=== PATIENT | male | born 1945 | race Caucasian/White ===

== ENCOUNTER 2024-10-29 11:16 | Observation (INO) | payer MEDICARE ==
[~2024-10-29] VITALS: Ht 180.3 cm; Wt 76.2 kg
[2024-10-29 12:15] LABS: BASOPHILS ABSOLUTE AUTO 0.05 K/mm3 (0.00-0.23); BASOPHILS PERCENT AUTO 1 % (0-2); EOSINOPHILS ABSOLUTE AUTO 0.06 K/mm3 (0.00-0.68); EOSINOPHILS PERCENT AUTO 1 % (0-6); Hematocrit 45.3 % (37.0-53.0); Hemoglobin 15.7 g/dL (13.5-17.5); IMMATURE GRAN ABSOLUTE AUTO 0.01 K/mm3 (0.00-0.10); IMMATURE GRAN PERCENT AUTO 0 % (0-1); LYMPHOCYTES ABSOLUTE AUTO 1.19 K/mm3 (0.84-5.20); LYMPHOCYTES PERCENT AUTO 22 % (21-46); MONOCYTES ABSOLUTE AUTO 0.35 K/mm3 (0.16-1.47); MONOCYTES PERCENT AUTO 7 % (4-13); Mean Corpuscular HGB 32.1 pg (26.0-34.0); Mean Corpuscular HGB Conc 34.7 g/dL (31.5-36.5); Mean Corpuscular Volume 93 fL (80-100); Mean Platelet Volume 9.5 fL (9.1-12.4); NEUTROPHILS ABSOLUTE AUTO 3.66 K/mm3 (1.96-9.15); NEUTROPHILS PERCENT AUTO 69 % (41-73); Platelet Count 245 K/mm3 (150-400); RDW Coefficient Variation 12.7 % (11.7-14.2); RDW Standard Deviation 43.1 fL (35.1-46.3); Red Blood Cell Count 4.89 M/mm3 (4.30-5.90); White Blood Cell Count 5.32 K/mm3 (4.00-11.30)
[2024-10-29 12:34] LABS: Albumin, Blood 4.1 g/dL (3.4-5.0); Albumin/Globulin Ratio 1.2 (0.8-1.8); Bilirubin, Total 0.9 mg/dL (0.1-1.0); Bun/Creatinine Ratio 17.2 (12.0-20.0); Calcium, Blood 10.3 mg/dL (8.5-10.1); Creatinine, Blood 0.76 mg/dL (0.60-1.20); Globulin, Blood 3.5 g/dL (2.2-4.0); Potassium, Blood 4.5 mmol/L (3.5-5.5); Total Protein, Blood 7.6 g/dL (6.4-8.2)
[2024-10-29] MEDS ORDERED: FLU VACC TS2024-25(6MOS UP)/PF 45 MCG/0.5 ML SYRINGE IM SCH (19:25)
[2024-10-29] MEDS ORDERED: Ondansetron HCl 2 MG / ML 2ML Vial IV PRN (19:30)
[2024-10-29] MEDS ORDERED: Nitroglycerin 0.4 MG SUBL SL PRN (19:30)
[2024-10-29] MEDS ORDERED: Neurontin 300300 MG PO (21:40)
[2024-10-29] MEDS ORDERED: Percocet 10-321 EACH PO (21:40)
[2024-10-29] MEDS ORDERED: TRAZ50 PO (21:41)
[2024-10-29] MEDS ORDERED: Lovastatin20 MG PO (21:42)
[2024-10-29] MEDS ORDERED: Robaxin750 MG PO (21:42)
[2024-10-29] MEDS ORDERED: Valerian Root500 MG (21:43)
[2024-10-29] MEDS ORDERED: SENN187 (21:43)
[2024-10-29] MEDS ORDERED: ESOM20 PO (21:43)
[2024-10-29] MEDS ORDERED: DULO60 PO (21:44)
[2024-10-29] MEDS ORDERED: MELATONIN5 M1 PO (21:44)
[2024-10-29] MEDS ORDERED: OxyCODONE 10/Acetamin 325 TABLET PO ONE (23:40)
[2024-10-29] MEDS ORDERED: Methocarbamol 500 MG Tab PO ONE (23:40)
[2024-10-29] MEDS ORDERED: TraZODone HCl 50 MG Tab PO ONE (23:40)
[2024-10-29] MEDS ORDERED: Melatonin 5 MG Tablet PO ONE (23:50)
[2024-10-30] MEDS ORDERED: Lactated Ringer's 1,000 ML IV SCH
[2024-10-30] MEDS ORDERED: Lactated Ringer's 1,000 ML IV ONE (01:04)
[2024-10-30] MEDS ORDERED: OxyCODONE 10/Acetamin 325 TABLET PO ONE (04:20)
[2024-10-30 05:14] LABS: BASOPHILS ABSOLUTE AUTO 0.03 K/mm3 (0.00-0.23); BASOPHILS PERCENT AUTO 1 % (0-2); EOSINOPHILS PERCENT AUTO 2 % (0-6); Hematocrit 38.8 % (37.0-53.0); Hemoglobin 13.3 g/dL (13.5-17.5); IMMATURE GRAN ABSOLUTE AUTO 0.01 K/mm3 (0.00-0.10); IMMATURE GRAN PERCENT AUTO 0 % (0-1); LYMPHOCYTES ABSOLUTE AUTO 1.77 K/mm3 (0.84-5.20); LYMPHOCYTES PERCENT AUTO 31 % (21-46); MONOCYTES ABSOLUTE AUTO 0.48 K/mm3 (0.16-1.47); MONOCYTES PERCENT AUTO 8 % (4-13); Mean Corpuscular HGB 32.2 pg (26.0-34.0); Mean Corpuscular HGB Conc 34.3 g/dL (31.5-36.5); Mean Corpuscular Volume 94 fL (80-100); Mean Platelet Volume 9.3 fL (9.1-12.4); NEUTROPHILS ABSOLUTE AUTO 3.38 K/mm3 (1.96-9.15); NEUTROPHILS PERCENT AUTO 59 % (41-73); Platelet Count 173 K/mm3 (150-400); RDW Coefficient Variation 12.4 % (11.7-14.2); RDW Standard Deviation 42.9 fL (35.1-46.3); Red Blood Cell Count 4.13 M/mm3 (4.30-5.90); White Blood Cell Count 5.77 K/mm3 (4.00-11.30)
[2024-10-30 05:45] LABS: Alanine Aminotransfer (ALT/SGP 19 U/L (12-78); Albumin, Blood 3.4 g/dL (3.4-5.0); Albumin/Globulin Ratio 1.2 (0.8-1.8); Alk Phos 65 U/L (50-136); Anion Gap 10 mmol/L (3-11); Aspartate Aminotrans (AST/SGOT 21 U/L (12-37); Bilirubin, Total 0.8 mg/dL (0.1-1.0); Blood Urea Nitrogen 15 mg/dL (8-24); Bun/Creatinine Ratio 21.8 (12.0-20.0); CHOL/HDL RATIO 2.8; CO2, Blood 26 mmol/L (21-32); Calcium, Blood 9.2 mg/dL (8.5-10.1); Chloride, Blood 105 mmol/L (98-108); Cholesterol 158 mg/dL (50-200); Creatinine, Blood 0.69 mg/dL (0.60-1.20); Globulin, Blood 2.8 g/dL (2.2-4.0); Glomerular Filtration Rate 95 (60-); Glucose, Blood 99 mg/dL (70-99); HDL Cholesterol 57 mg/dL (>39); LDL/HDL RATIO 1.4; Low Density Lipoprotein Chol 80 mg/dL (0-110); Magnesium, Blood 1.9 mg/dL (1.6-2.4); Potassium, Blood 3.6 mmol/L (3.5-5.5); Sodium, Blood 137 mmol/L (136-145); Total Protein, Blood 6.2 g/dL (6.4-8.2); Triglycerides 104 mg/dL (30-160); Very Low Density Lipoprot Chol 20 mg/dL (6-32)
[2024-10-30] MEDS ORDERED: Enoxaparin 40 MG/0.4 ML SYR SC SCH (09:00)
[2024-10-30] MEDS ORDERED: Aspirin 81 MG Chew PO SCH (09:00)
[2024-10-30 09:49] VITALS: BP 189/120
[2024-10-30 10:04] VITALS: BP 170/112
[2024-10-30] MEDS ORDERED: FentaNYL 12 MCG/HR Patch TOP SCH (11:15)
[2024-10-30] MEDS ORDERED: OxyCODONE 10/Acetamin 325 TABLET PO PRN (11:15)
[2024-10-30] MEDS ORDERED: HydrALAZINE HCl 20 MG / ML 1ML Vial IV PRN (11:15)
[2024-10-30] MEDS ORDERED: TraZODone HCl 50 MG Tab PO PRN (11:20)
[2024-10-30] MEDS ORDERED: Caffeine Citrated 60 MG/3 ML Vial ONE (12:00)
[2024-10-30] MEDS ORDERED: Regadenoson 0.4 MG/5 ML SYRINGE ONE (12:00)
[2024-10-30 12:04] VITALS: BP 132/83
--- NOTE | 2024-10-30 13:49 | NUR ---
DR HAMPTON CONTACTED FOR PATIENT PAIN OUT OF CONTROL RATED A 10/10, PATIENT CRYING AND SCREAMING. NEW ORDER FOR DILAUDID 2MG ORDERED BY PROVIDER FOR PAIN RELIEF. HEAT PACK APPLIED TO LOW BACK TO ASSIST WITH PAIN.
[2024-10-30] MEDS ORDERED: HYDROmorphone HCl/Pf 1MG SYR IV ONE (14:00)
[2024-10-30 15:35] VITALS: BP 111/88
--- NOTE | 2024-10-30 18:33 | NUR ---
PATIENT A/O X 4. PATIENT WAS SUPPOSED TO HAVE A NUCLEAR STRESS TEST HOWEVER WAS UNABLE TO TOELRATE THE RADIOLOGY PORTION OF SCAN AND HAD TO BE BROUGHT BACK TO ROOM IN 1010 PAIN. PATIENT WAS GIVEN IV DILUADID FOR PAIN AND PAIN LEVEL WENT FROM 10/10 DOWN TO 6/10. PATIENT STATES HE FEELS MORE COMFORTABLE. PATIENT ADVISED HE IS NOT TO DRINK ANY CAFFEINE OR HAVE CHOCOLATE THIS EVENING TO DO REPEAT STRESS TEST IN AM. PATIENT TO BE NPO AFTER MIDNIGHT. PATIENT HAS NEW IV IN RIGHT FOREARM 22G AND IV IN LEFT AC 20G. PATIENT HAS LR RUNNING AT 175/HR IN RIGHT IV. PATIENT DENIES ANY OTHER NEEDS AT THIS TIME.
[2024-10-30 19:46] VITALS: BP 144/89
[2024-10-30] MEDS ORDERED: Melatonin 5 MG Tablet PO SCH (21:00)
[2024-10-30] MEDS ORDERED: Gabapentin 300 MG Cap PO SCH (21:00)
[2024-10-31 02:31] VITALS: BP 151/88
[2024-10-31] MEDS ORDERED: Regadenoson 0.4 MG/5 ML SYRINGE ONE (06:56)
[2024-10-31] MEDS ORDERED: Aminophylline 250MG / 10ML 10 ML Vial ONE (06:56)
[2024-10-31] MEDS ORDERED: HYDROmorphone HCl/Pf 1MG SYR IV ONE (08:00)
[2024-10-31 08:06] VITALS: BP 185/105
[2024-10-31] MEDS ORDERED: AmLODIPine Besylate 5 MG Tab PO SCH (09:00)
[2024-10-31] MEDS ORDERED: NITR.4SL SL (15:13)
[2024-10-31] MEDS ORDERED: ASPI81CH PO (15:13)
[2024-10-31] MEDS ORDERED: METO25ER PO (15:14)
--- NOTE | 2024-10-31 16:17 | NUR ---
SUMMARY/DISCHARGE PT DISCHARGED TO HOME, STRESS TEST COMPLETE, HAS DENIED ANY CHEST PAIN T/O THE DAY, PT MED PER EMAR FOR CHRONIC BACK PAIN, PT HAS BEEN INDEPENDENT IN THE ROOM, FAMILY HAS BEEN IN TO VISIT MOST OF THE DAY, PT AND SPOUSE VERBALIZED UNDERSTANDING OF DISCHARGE INSTRUCTIONS AND FOLLOW UP NEEDED, PT TAKEN OUT SAFELY VIA WHEELCHAIR
== END 2024-10-31 15:50 | disposition home or self-care (01) ==
LOC: ER 11:16 → ERHOLD 11:17 → MEDS 11:17
PROVIDERS: Physician Assistant; ADMIT Student in an Organized Health Care Education/Training Program
DX: I50.40 Unspecified combined systolic (congestive) and diastolic (congestive) heart failure (principal); M54.50 Low back pain, unspecified; G89.29 Other chronic pain; R01.1 Cardiac murmur, unspecified; Z66 Do not resuscitate; Z87.891 Personal history of nicotine dependence
CPT/HCPCS: 71046; 78452; 80053; 80061; 83690; 83735; 84443; 84484; 85025; 93005; 93010; 93017; 93306; 96360; 96361; 96374; 96375; 96376; 99285-25; A9270; A9500; G0378; J0280; J0360; J0706; J1171; J1650; J2785; J7120

== ENCOUNTER → 2024-12-05 | Outpatient (CLI) | payer MEDICARE ==
[~2024-12-05] MED LIST: ASPI81CH PO; DULO60 PO; ESOM20 PO; Lovastatin20 MG PO; MELATONIN5 M1 PO; METO25ER PO; NITR.4SL SL; Neurontin 300300 MG PO; Percocet 10-321 EACH PO; Robaxin750 MG PO; SENN187; TRAZ50 PO; Valerian Root500 MG
[2024-12-05 13:46] LABS: U Amphetamine Screen Not Detected; U Barbituate Screen Not Detected; U Benzodiazapine Screen Not Detected; U Buprenorphine Screen Not Detected; U Cannabinoids Screen Not Detected; U Cocaine Screen Not Detected; U Methadone Screen Not Detected; U Methamphetamine Screen Not Detected; U Opiates Screen Not Detected; U Oxycodone Screen Not Detected; U Phencyclidine Screen Not Detected
== END ==
LOC: LAB SHORT 11:34
PROVIDERS: Physician Assistant
DX: Z51.81 Encounter for therapeutic drug level monitoring (principal); Z79.899 Other long term (current) drug therapy

== ENCOUNTER → 2025-03-04 | Outpatient (CLI) | payer MEDICARE ==
[2025-03-04 10:56] LABS: BASOPHILS ABSOLUTE AUTO 0.05 K/mm3 (0.00-0.23); BASOPHILS PERCENT AUTO 1 % (0-2); EOSINOPHILS ABSOLUTE AUTO 0.12 K/mm3 (0.00-0.68); EOSINOPHILS PERCENT AUTO 3 % (0-6); Hematocrit 41.6 % (37.0-53.0); Hemoglobin 14.1 g/dL (13.5-17.5); IMMATURE GRAN ABSOLUTE AUTO 0.01 K/mm3 (0.00-0.10); IMMATURE GRAN PERCENT AUTO 0 % (0-1); LYMPHOCYTES ABSOLUTE AUTO 1.59 K/mm3 (0.84-5.20); LYMPHOCYTES PERCENT AUTO 33 % (21-46); MONOCYTES ABSOLUTE AUTO 0.37 K/mm3 (0.16-1.47); MONOCYTES PERCENT AUTO 8 % (4-13); Mean Corpuscular HGB 31.3 pg (26.0-34.0); Mean Corpuscular HGB Conc 33.9 g/dL (31.5-36.5); Mean Corpuscular Volume 92 fL (80-100); Mean Platelet Volume 9.1 fL (9.1-12.4); NEUTROPHILS ABSOLUTE AUTO 2.72 K/mm3 (1.96-9.15); NEUTROPHILS PERCENT AUTO 56 % (41-73); Platelet Count 234 K/mm3 (150-400); RDW Coefficient Variation 12.8 % (11.7-14.2); RDW Standard Deviation 43.8 fL (35.1-46.3); White Blood Cell Count 4.86 K/mm3 (4.00-11.30)
[2025-03-04 11:13] LABS: Albumin, Blood 3.8 g/dL (3.4-5.0); Albumin/Globulin Ratio 1.3 (0.8-1.8); Bilirubin, Total 0.7 mg/dL (0.1-1.0); Bun/Creatinine Ratio 10.4 (12.0-20.0); Creatinine, Blood 0.77 mg/dL (0.60-1.20); Potassium, Blood 3.9 mmol/L (3.5-5.5); Total Protein, Blood 6.8 g/dL (6.4-8.2)
== END ==
LOC: LAB 10:51 → LAB SHORT 10:51
PROVIDERS: Physician Assistant Medical
DX: I95.9 Hypotension, unspecified (principal)
CPT/HCPCS: 80053; 85025

== ENCOUNTER → 2025-06-11 | Outpatient (CLI) | payer MEDICARE, OTHER ==
[2025-06-11 10:55] LABS: BASOPHILS ABSOLUTE AUTO 0.02 K/mm3 (0.00-0.23); BASOPHILS PERCENT AUTO 0 % (0-2); EOSINOPHILS ABSOLUTE AUTO 0.15 K/mm3 (0.00-0.68); EOSINOPHILS PERCENT AUTO 2 % (0-6); Hematocrit 43.5 % (37.0-53.0); Hemoglobin 14.5 g/dL (13.5-17.5); IMMATURE GRAN ABSOLUTE AUTO 0.01 K/mm3 (0.00-0.10); IMMATURE GRAN PERCENT AUTO 0 % (0-1); LYMPHOCYTES ABSOLUTE AUTO 1.65 K/mm3 (0.84-5.20); LYMPHOCYTES PERCENT AUTO 26 % (21-46); MONOCYTES ABSOLUTE AUTO 0.41 K/mm3 (0.16-1.47); MONOCYTES PERCENT AUTO 7 % (4-13); Mean Corpuscular HGB Conc 33.3 g/dL (31.5-36.5); Mean Corpuscular Volume 92 fL (80-100); NEUTROPHILS ABSOLUTE AUTO 4.07 K/mm3 (1.96-9.15); NEUTROPHILS PERCENT AUTO 65 % (41-73); NRBC ABSOLUTE 0.00 K/mm3 (0.00-0.02); NRBC Auto 0.0 /100 WBC (0.0-0.2); Platelet Count 201 K/mm3 (150-400); RDW Coefficient Variation 13.0 % (11.7-14.2); RDW Standard Deviation 44.2 fL (35.1-46.3)
[2025-06-11 11:16] LABS: Alanine Aminotransfer (ALT/SGP 21.0 U/L (12-78); Albumin, Blood 3.9 g/dL (3.4-5.0); Albumin/Globulin Ratio 1.2 (0.8-1.8); Anion Gap 9.0 mmol/L (3-11); Aspartate Aminotrans (AST/SGOT 21.0 U/L (12-37); Bilirubin, Total 0.7 mg/dL (0.1-1.0); Blood Urea Nitrogen 18.0 mg/dL (8-24); CO2, Blood 32.0 mmol/L (21-32); Calcium, Blood 9.5 mg/dL (8.5-10.1); Chloride, Blood 101.0 mmol/L (98-108); Creatinine, Blood 0.91 mg/dL (0.60-1.20); Globulin, Blood 3.3 g/dL (2.2-4.0); Glucose, Blood 105.0 mg/dL (70-99); Potassium, Blood 4.1 mmol/L (3.5-5.5); Sodium, Blood 138.0 mmol/L (136-145); Total Protein, Blood 7.2 g/dL (6.4-8.2)
== END | disposition home or self-care (01) ==
LOC: LAB 10:51 → LAB SHORT 10:51
PROVIDERS: Family Medicine
DX: R42 Dizziness and giddiness (principal)
CPT/HCPCS: 80053; 83880; 85025

== ENCOUNTER 2025-10-24 16:12 | Emergency (ER) | payer MEDICARE, OTHER ==
[~2025-10-24] VITALS: Ht 180.3 cm; Wt 82.5 kg
[2025-10-24] MEDS ORDERED: OxyCODONE 5 mg/Acetamin 325 mg TABLET PO ONE (18:10)
== END 2025-10-24 20:31 | disposition home or self-care (01) ==
LOC: ER 16:12
DX: S42.001A Fracture of unspecified part of right clavicle, initial encounter for closed fracture (principal); S00.03XA Contusion of scalp, initial encounter; W01.0XXA Fall on same level from slipping, tripping and stumbling without subsequent striking against object, initial encounter; Z79.899 Other long term (current) drug therapy; Z79.82 Long term (current) use of aspirin; I50.9 Heart failure, unspecified
CPT/HCPCS: 70450; 72125; 73030; 99284-25; A9270

== ENCOUNTER 2025-11-11 06:28 | Day surgery (SDC) | payer MEDICARE, OTHER ==
[~2025-11-11] VITALS: Ht 180.3 cm; Wt 79.2 kg
[2025-11-11] MEDS ORDERED: NS 1,000 ML IV ONE ×3 (06:31→09:20)
[2025-11-11] MEDS ORDERED: CefTRIAXone 2000 MG Vial ONE (06:36)
[2025-11-11] MEDS ORDERED: Fentanyl Patch TD (06:47)
[2025-11-11] MEDS ORDERED: EZALLOR SPRINKL20 MG PO (06:52)
[2025-11-11] MEDS ORDERED: Sugammadex Sodium 200 MG/2ML SDV (100 MG/ML) ONE (06:54)
[2025-11-11] MEDS ORDERED: FentaNYL Citrate 50 MCG/ML 2 ML Injection ONE (06:54)
[2025-11-11] MEDS ORDERED: Ondansetron HCl 2 MG / ML 2ML Vial ONE (06:55)
[2025-11-11] MEDS ORDERED: Dexamethasone Sod Phos 10 MG/ML 1ML VIAL ONE (06:55)
[2025-11-11] MEDS ORDERED: Rocuronium Bromide 10 MG/ML 5ML Injection IV ONE (06:55)
[2025-11-11] MEDS ORDERED: NS 50 ML IV ONE (07:14)
[2025-11-11] MEDS ORDERED: Bupivacaine 0.5% W/EPI 1:200000 SDV 30 ML Vial ONE (07:14)
--- NOTE | 2025-11-11 07:16 | NUR ---
11/11/25 0716 DINESH FRANCIS MD NOTIFIED FACE TO FACE THAT PT WAS DIZZY UPON ENTERING PRE-OP AND HEART RATE IS TACHYCARDIC AND IRREGULAR.
[2025-11-11] MEDS ORDERED: Phenylephrine HCl 100 MCG/ML-NS 10MLSYR (1MG/10ML) ONE (07:39)
[2025-11-11] MEDS ORDERED: Tranexamic Acid 100 ML IV ONE (07:53)
--- NOTE | 2025-11-11 08:16 | NUR ---
11/11/25 0816 Isamar Ledesma [address] ALMANZA AT [id number].
--- NOTE | 2025-11-11 10:01 | NUR ---
11/11/25 1001 JACQUI HAINES PT DENIES PAIN AND NAUSEA. IRREGULAR RYTHM, CONSISTANT WITH TIME IN OR AND HX
--- NOTE | 2025-11-11 10:19 | NUR ---
11/11/25 1019 JACQUI HAINES FROM RAD IN TAKING IMAGING OF PT- CLAVICAL. ORDERRS PER DR Cruz
[2025-11-11] MEDS ORDERED: OxyCODONE 5 mg/Acetamin 325 mg TABLET ONE (10:34)
== END 2025-11-11 11:20 | disposition home or self-care (01) ==
LOC: ORSCSDS 06:28
PROVIDERS: Orthopaedic Surgery
PROC: 0PS904Z Reposition Right Clavicle with Internal Fixation Device, Open Approach (ICD-10-PCS; principal; 2025-11-11 07:30)
DX: S42.031A Displaced fracture of lateral end of right clavicle, initial encounter for closed fracture (principal); I10 Essential (primary) hypertension; I50.9 Heart failure, unspecified; Z87.891 Personal history of nicotine dependence; Z79.899 Other long term (current) drug therapy; Z79.82 Long term (current) use of aspirin
CPT/HCPCS: 73000; A9270; C1713; J0696; J1100; J2371; J2405; J2704; J3010; J7030